=== PATIENT | female | born 1980 | race Caucasian/White ===

== ENCOUNTER 2018-08-23 12:44 | Emergency (ER) | payer OTHER ==
[2018-08-23] MEDS ORDERED: NS 1,000 ML IV ONE (12:57)
--- NOTE | 2018-08-23 12:57 | EDPHY ---
H & P Time Seen by Provider: 08/23/18 12:53 HPI/ROS: Chief complaint. Numb hands HPI. Patient is a 38-year-old female presents emergency department with 1 hr history of feeling like she might pass out, feels like her heart is racing, tingling to both hands and calfs. Symptoms began while driving. She has no chest pain or shortness of breath. She did have slight upper abdominal pain this morning which is resolved. She has no headache. She feels shaky. She thought she might be hypoglycemic so ate some food but it really did not help much. She does admit to a lot of stress. She has a history of migraines and uses Imitrex but has not used Imitrex for about 1 week. She has had upper respiratory symptoms for the last several days. ROS 10 systems were reviewed and negative with the exception of the elements mentioned in the history of present illness Past Medical/Surgical History: Migraines, D&C Social History: , nonsmoker, no alcohol Smoking Status: Never smoked Physical Exam: General Appearance: Alert well-developed female mild distress vital signs significant for heart rate 104 Eyes: Pupils equal and round no pallor or injection. ENT, Mouth: Mucous membranes are moist. Respiratory: There are no retractions, lungs are clear to auscultation. Cardiovascular: Regular rate and rhythm. Gastrointestinal: Abdomen is soft and nontender, no masses, bowel sounds normal. Neurological: Awake and alert, sensory and motor exams grossly normal. Speech is normal. Cranial nerves are normal. There is no pronator drift. Finger-to- nose and [id number] are intact bilaterally Skin: Warm and dry, no rashes. Musculoskeletal: Neck is supple nontender. Extremities symmetrical, full range of motion. Psychiatric: Patient is oriented X 3, there is no agitation. Constitutional: Initial Vital Signs Temperature (C) 36.5 C 08/23/18 12:47 Heart Rate 104 H 08/23/18 12:47 Respiratory Rate 16 08/23/18 12:47 Blood Pressure 127/86 H 08/23/18 12:47 O2 Sat (%) 96 08/23/18 12:47 O2 Delivery Mode Room Air Allergies/Adverse Reactions: No Known Allergies Allergy (Verified 08/23/18 12:50) Home Medications: Medication Instructions Recorded IMITREX 08/23/18 Medical Decision Making - Diagnostics EKG Interpretation: EKG interpreted by me shows normal sinus rhythm normal interval and axis. QRS is normal there is no significant ST elevation or depression. No arrhythmia. The rate is 83 Procedures: IV normal saline, ED Course/Re-evaluation: Re-evaluation 2:45 p.m. Patient is feeling much better. Symptoms have resolved. The patient, her , discussed EKG and laboratory evaluation. We discussed treatment plan including criteria for return and importance of follow-up and further evaluation. They expressed understanding and agreement. They feel comfortable going home. Differential Diagnosis: I considered acute coronary syndrome, hypoglycemia, electrolyte abnormality. Nothing to suggest CVA. She does not have a headache to suggest migraine. She is under a lot of stress. She really has no risk factors for early coronary artery disease or CVA - Data Points Laboratory Results: Laboratory Results 08/23/18 13:21 08/23/18 13:21 08/23/18 08/23/18 08/23/18 14:21 13:32 13:21 WBC RBC Hgb Hct MCV MCH MCHC RDW Plt Count MPV Neut % (Auto) Lymph % (Auto) Bryan % (Auto) Eos % (Auto) Baso % (Auto) Nucleat RBC Rel Count Absolute Neuts (auto) Absolute Lymphs (auto) Absolute Monos (auto) Absolute Eos (auto) Absolute Basos (auto) Absolute Nucleated RBC Immature Gran % Immature Gran # Sodium 134 mEq/L L mEq/L (135-145) Potassium 3.7 mEq/L mEq/L (3.5-5.2) Chloride 102 mEq/L mEq/L (97-110) Carbon Dioxide 22 mEq/l mEq/l (22-31) Anion Gap 10 mEq/L mEq/L (6-14) BUN 17 mg/dL mg/dL (7-23) Creatinine 0.8 mg/dL mg/dL (0.6-1.0) Estimated GFR > 60 Glucose 151 mg/dL H mg/dL (70-100) Calcium 9.4 mg/dL mg/dL (8.5-10.4) POC Troponin I 0.00 ng/mL ng/mL (0.00-0.08) Beta HCG, Qual NEGATIVE 08/23/18 13:21 WBC 6.86 10^3/uL 10^3/uL (3.80-9.50) RBC 4.79 10^6/uL 10^6/uL (4.18-5.33) Hgb 13.9 g/dL g/dL (12.6-16.3) Hct 42.2 % % (38.0-47.0) MCV 88.1 fL fL (81.5-99.8) MCH 29.0 pg pg (27.9-34.1) MCHC 32.9 g/dL g/dL (32.4-36.7) RDW 12.4 % % (11.5-15.2) Plt Count 238 10^3/uL 10^3/uL (150-400) MPV 10.2 fL fL (8.7-11.7) Neut % (Auto) 70.4 % % (39.3-74.2) Lymph % (Auto) 23.9 % % (15.0-45.0) Bryan % (Auto) 5.2 % % (4.5-13.0) Eos % (Auto) 0.0 % L % (0.6-7.6) Baso % (Auto) 0.4 % % (0.3-1.7) Nucleat RBC Rel Count 0.0 % % (0.0-0.2) Absolute Neuts (auto) 4.82 10^3/uL 10^3/uL (1.70-6.50) Absolute Lymphs (auto) 1.64 10^3/uL 10^3/uL (1.00-3.00) Absolute Monos (auto) 0.36 10^3/uL 10^3/uL (0.30-0.80) Absolute Eos (auto) 0.00 10^3/uL L 10^3/uL (0.03-0.40) Absolute Basos (auto) 0.03 10^3/uL 10^3/uL (0.02-0.10) Absolute Nucleated RBC 0.00 10^3/uL 10^3/uL (0-0.01) Immature Gran % 0.1 % % (0.0-1.1) Immature Gran # 0.01 10^3/uL 10^3/uL (0.00-0.10) Sodium Potassium Chloride Carbon Dioxide Anion Gap BUN Creatinine Estimated GFR Glucose Calcium POC Troponin I Beta HCG, Qual Medications Given: Discontinued Medications Sodium Chloride (Ns) 1,000 mls @ 0 mls/hr IV EDNOW ONE; Wide Open PRN Reason: Protocol Stop: 08/23/18 12:58 Last Admin: 08/23/18 13:38 Dose: 1,000 mls Point of Care Test Results: Chemistry 08/23/18 13:32 POC Troponin I 0.00 ng/mL ng/mL (0.00-0.08) Departure - Departure Disposition: Home, Routine, Self-Care Clinical Impression: Near syncope Condition: Good Instructions: Near Syncope (ED) Additional Instructions: Easy activity rest of today. Regular meals and drink enough fluids to stay hydrated Return for worsening symptoms. Re-evaluation with your regular physician at [facility] in the next 2-3 days. Referrals: [facility] [Other] - As per Instructions [facility] ,. [Edm Groups for Call Sched] - 2-3 days without fail
[2018-08-23 13:42] LABS: PLATELET COUNT 238 10^3/uL (150-400)
--- NOTE | 2018-08-23 14:11 | CPEKG ---
Test Reason : OPEN Blood Pressure : / mmHG Vent. Rate : 083 BPM Atrial Rate : 083 BPM P-R Int : 140 ms QRS Dur : 108 ms QT Int : 380 ms P-R-T Axes : 074 072 030 degrees QTc Int : 447 ms Sinus rhythm Confirmed by Anusha Mcmullen ([id number]) on 08/23/2018 2:10:44 PM Referred By: ANUSHA MCMULLEN Confirmed By:Anusha Mcmullen
[2018-08-23 14:43] VITALS: BP 122/74
== END 2018-08-23 15:14 | disposition home or self-care (01) ==
DX: R55 Syncope and collapse (principal)
CPT/HCPCS: 84484-ER